=== PATIENT | female | born 1985 | race Caucasian/White ===

== ENCOUNTER 2016-06-22 10:28 | Emergency (ER) | payer BC, OTHER ==
[~2016-06-22] VITALS: Wt 63.0 kg
[~2016-06-22 10:28] MED LIST: ALBU8.5H3 IH; PREN1TAB49 PO
[2016-06-22] MEDS ORDERED: HYDROCODONE/APAP (5/325) TAB PO STA (10:57)
[2016-06-22] MEDS ORDERED: LIDOCAINE 1%/EPI (MDV) 20 ML INJ INJ STA (10:57)
[2016-06-22] MEDS ORDERED: ACET1TAB40 PO (11:23)
--- NOTE | 2016-06-22 11:25 | ERD ---
ER Documentation Chief Complaint Date/Time DATE: 06/22/16 TIME: 11:24 Chief Complaint LAC ON LEFT LOWER LEG HPI This 31-year-old female sustained a laceration on her lateral left calf after eating a piece of metal while exiting a vehicle today. She denies restricted range of motion or weakness in her tetanus is up-to-date. ROS All systems reviewed and are negative except as per history of present illness. Medications Home Meds Active Scripts Acetaminophen with Codeine (Acetaminophen-Cod #3 Tablet) 1 Each Tablet, 1 TAB PO Q6H Y for PAIN, #10 TAB Prov:JUAN LUIS RIVERA MD 06/22/16 Reported Medications Albuterol Sulfate* (Proair HFA*) 8.5 Gm Hfa.aer.ad, 8.5 GM IH PRN 05/10/12 Vits W-Ca,Fe,Fa(<1MG) () 1 Tab Tablet, 1 TAB PO DAILY 05/10/12 Allergies Allergies: Uncoded Allergies: LATEX (Allergy, Intermediate, BLISTERS, 05/10/12) Physical Exam Vitals Vital Signs Date Time Temp Pulse Resp B/P Pulse Ox O2 Delivery O2 Flow Rate FiO2 06/22/16 10:37 98.5 108 18 121/65 99 Physical Exam Const: [] Head: Atraumatic Eyes: Normal Conjunctiva ENT: Normal External Ears, Nose and Mouth. Neck: Full range of motion..~ No meningismus. Resp: Clear to auscultation bilaterally Cardio: Regular rate and rhythm, no murmurs Abd: Soft, non tender, non distended. Normal bowel sounds Skin: No petechiae or rashes Back: No midline or flank tenderness Ext: No cyanosis, or edema. This is a 3 cm laceration on the lateral aspect left calf. No appreciable foreign body. There is no restricted range of motion weakness or suggestion of tendon or neurologic deficit. Neur: Awake and alert Psych: Normal Mood and Affect Results 24 hrs Current Medications Medications (Trade) Dose Ordered Sig/Eros Route PRN Reason Start Time Stop Time Status Last Admin Dose Admin Lidocaine/ Epinephrine (Xylocaine 1%/ Epi (Mdv) 20 ml) 20 ml ONCE STAT INJ 06/22/16 10:57 06/22/16 10:59 DC Acetaminophen/ Hydrocodone Bitart ([place] (5/325)) 1 tab ONCE STAT PO 06/22/16 10:57 1/8/17 10:59 DC 06/22/16 11:09 Procedures/MDM Procedure note-the left calf laceration was irrigated copiously with normal saline. 3 cc of 1% lidocaine with epinephrine was used for local infiltration. 5 4-0 nylon sutures were used to reapproximate the wound. The patient tolerated procedure well and the wound was dressed. Patient was discharged home instructions for wound check in 2 days and suture more proximal 10 days. She should otherwise return sooner for redness, fevers, new or worsening symptoms. Departure Diagnosis: Primary Impression: Laceration Condition: Stable Patient Instructions: Laceration, All Additional Instructions: 2 days wound check for infection. Approximately 10 days suture removal. JUAN LUIS RIVERA MD Jun 22, 2016 11:25
== END 2016-06-22 11:53 | disposition home or self-care (01) ==
LOC: FTE 10:28
DX: S81.812A Laceration without foreign body, left lower leg, initial encounter (principal); W26.8XXA Contact with other sharp object(s), not elsewhere classified, initial encounter; Y92.9 Unspecified place or not applicable; Z91.040 Latex allergy status
CPT/HCPCS: 12002; Z7502; Z7610